=== PATIENT | male | born 1990 | race Caucasian/White ===

== ENCOUNTER 2017-06-19 23:30 | Emergency (ER) | payer SELFPAY ==
[2017-06-19] MEDS ORDERED: HYDROcodone/Acetaminophen 10/325 mg Tablet ONE (23:53)
[2017-06-19] MEDS ORDERED: Ibuprofen 800 MG TAB ONE (23:54)
--- NOTE | 2017-06-20 09:44 | RAD ---
RIGHT HIP 2 VIEWS: Date: 06/19/17 FINDINGS: No fracture, dislocation, or joint space narrowing seen. The articular surface of the femoral head i s smooth. The right SI joint appears normal. IMPRESSION: No acute findings. POS: HOME
== END 2017-06-20 00:35 | disposition home or self-care (01) ==
LOC: BURERS 23:30
DX: M25.551 Pain in right hip (principal); F17.210 Nicotine dependence, cigarettes, uncomplicated

== ENCOUNTER 2018-10-02 16:14 | Emergency (ER) | payer SELFPAY ==
[2018-10-02] MEDS ORDERED: Adacel (T-DAP) 0.5 ML SYRINGE ONE (16:27)
--- NOTE | 2018-10-02 18:17 | RAD ---
RIGHT HAND THREE VIEWS: 10/02/18 No fracture was appreciated at this time. All bones appeared intact. Carpal bones and their relations hips seem normal. IMPRESSION: No acute finding. POS: HOME
== END 2018-10-02 16:51 | disposition home or self-care (01) ==
LOC: BURERS 16:14
DX: S63.8X1A Sprain of other part of right wrist and hand, initial encounter (principal); S00.81XA Abrasion of other part of head, initial encounter; F17.210 Nicotine dependence, cigarettes, uncomplicated; Y04.0XXA Assault by unarmed brawl or fight, initial encounter
CPT/HCPCS: 90471; 90715

== ENCOUNTER 2020-01-24 00:38 | Emergency (ER) | payer SELFPAY ==
[2020-01-24] MEDS ORDERED: Lidocaine 2% w/ Epi 1:200K 10 ML VIAL ONE (00:56)
[2020-01-24] MEDS ORDERED: Bacitracin 1 PK ONE (01:15)
[2020-01-24] MEDS ORDERED: Ibuprofen 200 MG TAB ONE (01:54)
--- NOTE | 2020-01-24 07:34 | CT ---
PRELIMINARY REPORT/[facility]/EMERGENCY AFTER HOURS PROCEDURE: EXAM: CT Head Without Intravenous Contrast. CLINICAL HISTORY: Syncope with head injury TECHNIQUE: Axial computed tomography images of the head/brain without intravenous contrast. Multiplanar reforma ts. COMPARISON: None provided. FINDINGS: BRAIN: No acute intraparenchymal hemorrhage. No mass lesion. No CT evidence for acute territorial infarct. N o midline shift or extra-axial collection. VENTRICLES: No hydrocephalus. ORBITS: The orbits are unremarkable. SINUSES AND MASTOIDS: The paranasal sinuses and mastoid air cells are clear. SOFT TISSUES: Right occipital scalp laceration. No radiopaque foreign body is seen. BONES: No acute skull fracture. IMPRESSION: No acute intracranial abnormality. ELECTRONICALLY SIGNED BY: Shauna Shukla MD Jan 24, 2020 1:34:43 AM CDT This report is intended for review by the ordering physician only, in accordance of law. If you recei ve this report in error, please call [facility] at [phone]. FINAL REPORT CT OF THE BRAIN WITHOUT CONTRAST: Date: 01/24/[address] was done following trauma. The ventricles are normal in size with no shift. No intracranial bleeding, mass, or sign of stroke wa s found. No extra-axial hematoma was seen. Skull appeared intact. Visible sinuses clear. A small lace ration in the right occipital region was noted. IMPRESSION: No acute intracranial findings. Report in agreement with preliminary reading by [facility]. POS: HOME
--- NOTE | 2020-01-24 07:38 | RAD ---
LEFT HIP 2 VIEWS: Date: 01/24/2020 No fracture, dislocation, or joint space narrowing seen. The adjacent pubic ring appears intact. The left SI joint appears normal. IMPRESSION: No acute findings. POS: HOME
--- NOTE | 2020-01-24 07:39 | CT ---
PRELIMINARY REPORT/[facility]/EMERGENCY AFTER HOURS PROCEDURE: EXAM: CT Cervical Spine Without Intravenous Contrast. CLINICAL HISTORY: Head injury after syncope TECHNIQUE: Axial computed tomography images of the cervical spine without intravenous contrast. Sagittal and cor onal reformations performed. COMPARISON: None provided. FINDINGS: BONES: No acute fracture or focal osseous lesion. Bony alignment is anatomic. DISCS / DEGENERATIVE CHANGES: Degenerative disc disease with foraminal narrowing at several cervical levels. SOFT TISSUES: No prevertebral soft tissue swelling. No apical pneumothorax. MISCELLANEOUS Biapical emphysema. IMPRESSION: No acute cervical spine fracture. ELECTRONICALLY SIGNED BY: Shauna Shukla MD Jan 24, 2020 1:39:19 AM CDT This report is intended for review by the ordering physician only, in accordance of law. If you recei ve this report in error, please call [facility] at [phone]. FINAL REPORT CT OF THE CERVICAL SPINE: Date: 01/24/[address] of the cervical spine was done following trauma. No fracture, dislocation, or disc space narrowing seen at any level. The C1 to dens distance is maikel l and the soft tissues are normal in thickness. There is some very minimal foraminal narrowing bilate rally at C5-C6. There are a few blebs suggested in the right lung apex without evidence of pneumothor ax. IMPRESSION: No acute traumatic findings. Report in agreement with preliminary report by [facility]. POS: HOME
== END 2020-01-24 02:00 | disposition home or self-care (01) ==
LOC: BURERS 00:38
DX: S06.0X1A Concussion with loss of consciousness of 30 minutes or less, initial encounter (principal); S01.01XA Laceration without foreign body of scalp, initial encounter; S70.02XA Contusion of left hip, initial encounter; S80.02XA Contusion of left knee, initial encounter; R55 Syncope and collapse; F31.9 Bipolar disorder, unspecified; F41.9 Anxiety disorder, unspecified; F17.210 Nicotine dependence, cigarettes, uncomplicated; W17.89XA Other fall from one level to another, initial encounter
CPT/HCPCS: 12002; 70450; 72125